=== PATIENT | male | born 1965 | race Caucasian/White ===

== ENCOUNTER 2016-08-17 05:45 | Day surgery (SDC) | payer BC ==
[~2016-08-17] VITALS: Ht 175.3 cm; Wt 78.0 kg
[~2016-08-17 05:45] MED LIST: ATOR20TA15 PO; BEDSIDE COMMODE1 MI1; LEVO.125 PO; LISI40TA PO; PROT40TA PO; WALKER WHEELS/F1 MIS
[2016-08-17] MEDS ORDERED: NS 1000P @30 MLS/HR (KVO) IV SCH (06:15)
[2016-08-17] MEDS ORDERED: SODIUM CHLOR 0.9% 1000 ML INJ 1,000 ML IV SCH ×2 (06:26→09:03)
[2016-08-17] MEDS ORDERED: ASPIRIN 325 MG TAB PO SCH (06:30)
[2016-08-17] MEDS ORDERED: MIDAZOLAM HCL 2 MG/2 ML VIAL IV SCH (06:30)
[2016-08-17] MEDS ORDERED: HEPARIN-NS/PF INJ 500 ML ONE (06:58)
[2016-08-17] MEDS ORDERED: MIDAZOLAM HCL 2 MG/2 ML VIAL ONE (06:59)
[2016-08-17] MEDS ORDERED: NITROGLYCERIN INJ 5 ML ONE (07:04)
[2016-08-17] MEDS ORDERED: NAPR220T95 PO (07:04)
[2016-08-17] MEDS ORDERED: ASPI1TAB69 PO (07:04)
[2016-08-17] MEDS ORDERED: LISI10TA PO (07:04)
[2016-08-17] MEDS ORDERED: HEPARIN SODIUM - IV 10,000 UNITS/10 ML VIAL ONE (07:04)
[2016-08-17] MEDS ORDERED: VERAPAMIL HCL 5 MG/2 ML VIAL ONE (07:04)
[2016-08-17 07:06] VITALS: BP 116/72; PULSE 78; RESP 18; TEMP 99.3; O2SAT 99
[2016-08-17] MEDS ORDERED: IOHEXOL 350 MG/ML 100 ML BTL (for Cath Lab) OTHER ONE (08:00)
[2016-08-17 08:29] LABS: TOTAL PROTEIN SPE 6.3 GM/DL (6.0-7.6)
[2016-08-17 08:49] LABS: TRANSFERRIN IRON PROFILE 148 MG/DL (200-360)
[2016-08-17] MEDS ORDERED: ASPI325T PO (09:03)
[2016-08-17] MEDS ORDERED: ATROPINE SULFATE 1 MG/ML VIAL IV PRN (09:15)
[2016-08-17] MEDS ORDERED: MISC INFORMATION XX ONE (09:15)
[2016-08-17] MEDS ORDERED: BACITRACIN OINT 0.9 GM PKT TOP ONE (09:15)
[2016-08-17] MEDS ORDERED: SODIUM CHLORIDE 0.9% FLUSH 10 ML FLUSH IV FLUSH SCH (21:00)
[2016-08-18 20:58] LABS: ALBUMIN SPE 3.69 GM/DL (3.50-5.00); ALPHA 1 GLOBULIN 0.3 GM/DL (0.11-0.29); ALPHA 2 GLOBULIN 0.69 GM/DL (0.22-1.00); BETA GLOBULINS (SPE) 0.78 GM/DL (0.53-1.03)
--- NOTE | 2016-08-21 10:02 | MA ---
cc: GABBI LIRA M.D., MARK B. M.D. DATE: 08/17/2016 PROCEDURE PERFORMED Right heart catheterization. Left heart catheterization. Coronary arteriography. Left ventriculography. PROCEDURE TECHNIQUE The patient was brought to the cardiac catheterization laboratory and the area of the right wrist and right groin were prepped and draped in the usual sterile manner. Following informed consent the patient underwent a left heart catheterization utilizing the right radial approach. A 6-Botswanan short introducer sheath was placed in the right radial artery without difficulty. Through this sheath a 6-B[place]wanan diagnostic catheter system including a JL4, TIG, JR4, and straight pigtail were used for the left heart study. Multiple projections of the left and right coronaries were taken. Left ventriculogram was done in the BOWLES 30 projection only. A 7-[place]wanan short introducer sheath was placed via modified Seldinger technique in the right femoral vein for access and placement of a Hanover-Benjamin thermodilution catheter. Pressures were then measured in the right atrium, right ventricle, pulmonary artery and pulmonary capillary wedge positions. Triplicate thermodilution cardiac outputs were performed. A final right coronary angiogram was performed before removal of the Hanover catheter for better evaluation of the anomalous circumflex artery. Oxygen saturations were drawn on withdrawal of the Hanover-Benjamin catheter in the pulmonary artery, right ventricle, high mid and low right atrium. At completion of procedure the catheters and introducers were removed and adequate hemostasis was maintained with a TR band in the right radial artery and manual pressure in the right femoral vein. The patient tolerated the procedure well. There were no immediate complications. HEMODYNAMIC DATA Right heart pressures: Right atrium A-wave = 6, V-wave = 5, mean = 3 mmHg. Right ventricle 29/7 mmHg. Pulmonary artery 22/5 with a mean pulmonary artery pressure of 12 mmHg. Pulmonary capillary wedge pressure A-wave = 9, V-wave = 9, mean = 6 mmHg. The cardiac output by thermodilution was 6.0 liters per minute. Cardiac index 3.0 liters per minute per meter squared. Cardiac index by Elva 3.3 liters per minute per meter squared. Oxygen saturations were drawn and there was no evidence of shunting or step up. Left heart pressures: There was no gradient recorded across the aortic valve. Left ventricular end-diastolic pressure was 11 mmHg. For complete hemodynamic details please see accompanying paperwork. LEFT VENTRICULOGRAPHY FINDINGS The left ventricle demonstrates increased end-systolic and diastolic dimensions. Overall left ventricular contractility is mild to moderately impaired. Estimated left ventricular ejection fraction is 40-45%. No mitral regurgitation is seen. The aortic valve is trileaflet and opens normally. The aortic root and proximal portion of the ascending aorta are normal. CORONARY ARTERIOGRAPHY FINDINGS LEFT MAIN: The left main trunk arises normally from the left coronary sinus. The left main trunk is normal. LAD: The left anterior descending artery is a moderate caliber vessel giving rise to multiple septal and diagonal branches. There are mild luminal irregularities but no significant obstructive disease. No circumflex is identified from the left coronary system. RCA: The right coronary gives rise to the circumflex artery which courses posterior to the aorta. The right coronary is large in caliber. There is 30-35% proximal stenosis. There is an area of up to 40% stenosis in the mid to distal segment. It gives rise to a posterior descending branch and right ventricular marginal branch. Mild irregularities. CIRCUMFLEX: The main circumflex is large in caliber. It gives rise to a posterolateral branch. There is a bifurcation and subdivision with a 40% stenosis in the midsegment. DIAGNOSIS 1. Normal right heart pressures. 2. Mild to moderate left ventricular dysfunction. 3. Mild coronary atherosclerosis. 4. 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 COMMENT/RECOMMENDATION Angiographically, this patient demonstrates findings of a nonischemic/dilated cardiomyopathy. He will be treated with medical management. He is currently undergoing evaluation of elevated liver function tests as well. This has caused avoidance of statin therapy for now. He has been recommended to eliminate any alcohol intake. He will be discharged home later today and follow-up has been arranged in 2 weeks. Medardo MD EMIR Hamilton/AKOSUA /8:41 AM /9:46 AM
== END 2016-08-17 11:40 | disposition home or self-care (01) ==
LOC: HDIC 05:45 → HDOC 05:45
PROVIDERS: ATTEND Internal Medicine Interventional Cardiology
DX: I25.10 Atherosclerotic heart disease of native coronary artery without angina pectoris (principal); I42.0 Dilated cardiomyopathy; R94.39 Abnormal result of other cardiovascular function study; I10 Essential (primary) hypertension; E78.00 Pure hypercholesterolemia, unspecified; Z79.01 Long term (current) use of anticoagulants
CPT/HCPCS: 82728; 82810; 83540; 83550; 84165; 93460; C1769; C1893; J1644; J2250; J3010; Q9967

== ENCOUNTER 2016-09-04 23:37 | Inpatient (IN) | payer BC ==
[~2016-09-04] VITALS: Ht 177.8 cm; Wt 87.6 kg
[~2016-09-04 23:37] MED LIST changes: +ASPI325T PO; -ATOR20TA15 PO; -BEDSIDE COMMODE1 MI1; +LISI10TA PO; -LISI40TA PO; +NAPR220T95 PO; -WALKER WHEELS/F1 MIS
[2016-09-04 23:42] VITALS: BP 101/59; PULSE 79; RESP 16; TEMP 98.8; O2SAT 95
[2016-09-04] MEDS ORDERED: ONDANSETRON HCL 4 MG/2 ML VIAL IV ONE (23:45)
[2016-09-04] MEDS ORDERED: SODIUM CHLOR 0.9% 1000 ML INJ 1,000 ML IV ONE (23:45)
[2016-09-04] MEDS ORDERED: METO25TA6 PO (23:56)
[2016-09-04] MEDS ORDERED: ASPI1TAB73 (23:56)
[2016-09-04] MEDS ORDERED: L-THPOW PO (23:56)
--- NOTE | 2016-09-04 23:59 | PD ---
HPI Chief Complaint: Abdominal Pain Time Seen by Provider: 23:43 Travel History International Travel<30 days: No Contact w/Intl Traveler<30days: No Traveled to known affect area: No History of Present Illness HPI The patient is a 50 year old male who presents to the [facility] emergency department with a history of abdominal pain in the midepigastric area associated with nausea, vomiting, and diarrhea that began today at approximately 8:30 PM. The patient reports that the pain is above the umbilicus. The patient reports that he has never had a pain like this previously. The patient reports that he then began to have vomiting and vomited approximately 4 times. He also began to have diarrhea and had 4 episodes of diarrhea. The patient reports that the stool is brown in color. He denies having any blood in his stool or mucus in his stool. He denies any recent antibiotic use, sick contacts, unusual food intake, or foreign travel. The patient's recent history has been complicated by having elevated liver enzymes and an episode of vomiting a few weeks ago. The patient has been undergoing workup for possible hemochromatosis. The patient was also noted to have a left bundle branch block and was referred to Dr. Lambert for further evaluation. The patient underwent a cardiac catheterization on August 17, 2016. The patient's cardiac catheterization revealed mild to moderate left ventricular dysfunction, mild coronary atherosclerosis. Dr. Kelley dictated that the patient had angiographic findings of a nonischemic dilated cardiomyopathy. He recommended medical management. The patient has recently been placed on a beta francis. The patient denies any history of fever, cough, congestion, neck pain, chest pain, shortness of breath, urinary symptoms, or neurologic symptoms. 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 Cancer: No Cardiovascular Problems: Yes (LBBB) High Cholesterol: Yes Diabetes: No Diminished Hearing: No Endocrine: Yes Gastrointestinal Disorders: Yes (reflux esophageal nodules) Genitourinary: No Hepatitis: No Hiatal Hernia: Yes (repair) Hypertension: Yes Immune Disorder: No Medical other: Yes (hemochromatosis) Musculoskeletal: Yes (arthritis of the back and hips) Neurologic: No Psychiatric: No Reproductive: No Respiratory: No Immunizations Current: Yes Thyroid Disease: Yes Influenza Vaccination: No Past Surgical History Narrative Surgical The patient's past surgical history is significant for hiatal hernia repair, hip surgery Abdominal Surgery: No AICD: No Cardiac Surgery: No Ear Surgery: No Endocrine Surgery: No Eye Surgery: No Genitourinary Surgery: No Gynecologic Surgery: No Joint Replacement: No Oral Surgery: No Pacemaker: No Thoracic Surgery: No Other Surgery: Yes (left hip, esophageal) Social History Alcohol Use: Yes (rarely) Tobacco Use: No Substance Use: No Allergies-Medications (Allergen,Severity, Reaction): Coded Allergies: No Known Allergies (Unverified , 09/04/16) Reported Meds & Prescriptions Reported Meds & Active Scripts Active Reported Metoprolol Succinate ER 24 HR (Metoprolol Succinate) 25 Mg Tab 25 Mg PO DAILY L-Thyroxine (Bulk) (Levothyroxine (Bulk)) Bulk Pow 125 Mcg PO DAILY Melissa Aspirin EC Low Dose (Aspirin) 81 Mg Tabdr Lisinopril-Hctz 10-12.5 Mg Tab 1 Tab PO DAILY Aleve (Naproxen Sodium) 220 Mg Tab 440 Mg PO BID PRN Protonix (Pantoprazole Sodium) 40 Mg Tab 40 Mg PO DAILY Review of Systems Except as stated in HPI: all other systems reviewed are Neg General / Constitutional: No: Fever Eyes: No: Visual changes HENT: No: Headaches Cardiovascular: No: Chest Pain or Discomfort Respiratory: No: Shortness of Breath Gastrointestinal: Positive: Nausea, Vomiting, Diarrhea, Abdominal Pain, Changes in Bowel Habits, Indigestion, Loss of Appetite, No: Hematemesis, Hematochezia Genitourinary: No: Dysuria Musculoskeletal: No: Pain Skin: No Rash Neurologic: No: Weakness Psychiatric: No: Depression Endocrine: No: Polydipsia Hematologic/Lymphatic: No: Easy Bruising Physical Exam Narrative General: The patient is a well-developed well-nourished male in no acute distress on arrival by ambulance services. Head and Neck exam: Head is normocephalic atraumatic. Eyes: EOMI, pupils are equal round and reactive to light. Nose: Midline septum with pink mucous membranes Mouth: Dentition unremarkable. Moist mucus membranes. Posterior oropharynx is not erythematous. No tonsillar hypertrophy. Uvula midline. Airway patent. Neck: No palpable lymphadenopathy. No nuchal rigidity. No thyromegaly. Cardiovascular: Regular rate and rhythm without murmurs, gallops, or rubs. Lungs: Clear to auscultation bilaterally. No wheezes, rhonchi, or rales. Abdomen: Soft, with tenderness on palpation of the midepigastric area periumbilical area and suprapubic area, no tenderness on palpation of McBurney's point. or the right upper quadrant of the abdomen. No guarding, rebound, or rigidity. Negative Ashton sign. Normal bowel sounds are audible. Extremities: No clubbing, cyanosis, or edema. 2+ pulses in all 4 extremities. No calf tenderness on palpation. Back: No spinous process tenderness to palpation. No costovertebral angle tenderness to palpation. Neurologic Exam: Grossly nonfocal. Skin Exam: No rash noted. Intact skin that is warm and dry. Data Data Last Documented VS Vital Signs Date Time Temp Pulse Resp B/P Pulse Ox O2 Delivery O2 Flow Rate FiO2 09/04/16 23:42 98.8 79 16 101/59 95 Orders Electrocardiogram (09/04/16 23:44) Complete Blood Count With Diff (09/04/16 23:44) Comprehensive Metabolic Panel (09/04/16 23:44) C-Reactive Protein (Crp) (09/04/16 23:44) Lipase (09/04/16 23:44) Urinalysis - C+S If Indicated (09/04/16 23:44) Magnesium (Mg) (09/04/16 23:44) Enteric Path (Stool) (09/04/16 23:44) C Diff Toxin Pcr (09/04/16 23:44) Iv Access Insert/Monitor (09/04/16 23:44) Ecg Monitoring (09/04/16 23:44) Oximetry (09/04/16 23:44) Stool Wbc (Leukocytes) (09/04/16 23:44) Sodium Chlor 0.9% 1000 Ml Inj (Ns 1000 M (09/04/16 23:45) Ondansetron Inj (Zofran Inj) (09/04/16 23:45) B-Type Natriuretic Peptide (09/05/16 00:08) Ckmb (Isoenzyme) Profile (09/04/16 23:44) Troponin I (09/04/16 23:44) Ct Abd/Pel W Iv Contrast(Rout) (09/05/16 00:44) Chest, Single Ap (09/05/16 00:56) Sodium Chlor 0.9% 1000 Ml Inj (Ns 1000 M (09/05/16 01:45) CKMB (09/05/16 00:15) CKMB% (09/05/16 00:15) Lactic Acid Sepsis Protocol (09/05/16 02:19) Piperacil-Tazo 3.375 Gm Premix (Zosyn 3. (09/05/16 02:30) Vancomycin Inj (Vancomycin Inj) (09/05/16 02:30) Sodium Chlor 0.9% 1000 Ml Inj (Ns 1000 M (09/05/16 02:30) Admit Order (Ed Use Only) (09/05/16 02:28) Labs Laboratory Tests Test 09/05/16 09/05/16 09/05/16 00:15 02:00 02:30 White Blood Count 16.5 TH/MM3 Red Blood Count 4.28 MIL/MM3 Hemoglobin 14.3 GM/DL Hematocrit 41.4 % Mean Corpuscular Volume 96.7 FL Mean Corpuscular Hemoglobin 33.4 PG Mean Corpuscular Hemoglobin 34.5 % Concent Red Cell Distribution Width 14.2 % Platelet Count 466 TH/MM3 Mean Platelet Volume 7.2 FL Neutrophils (%) (Auto) 91.9 % Lymphocytes (%) (Auto) 4.7 % Monocytes (%) (Auto) 1.9 % Eosinophils (%) (Auto) 1.1 % Basophils (%) (Auto) 0.4 % Neutrophils # (Auto) 15.2 TH/MM3 Lymphocytes # (Auto) 0.8 TH/MM3 Monocytes # (Auto) 0.3 TH/MM3 Eosinophils # (Auto) 0.2 TH/MM3 Basophils # (Auto) 0.1 TH/MM3 CBC Comment AUTO DIFF Differential Total Cells 100 Counted Neutrophils % (Manual) 53 % Band Neutrophils % 39 % Lymphocytes % 4 % Monocytes % 2 % Eosinophils % 1 % Basophils % 1 % Neutrophils # (Manual) 15.2 TH/MM3 Differential Comment FINAL DIFF MANUAL Platelet Estimate NORMAL Platelet Morphology Comment NORMAL Sodium Level 137 MEQ/L Potassium Level 4.2 MEQ/L Chloride Level 104 MEQ/L Carbon Dioxide Level 20.5 MEQ/L Anion Gap 13 MEQ/L Blood Urea Nitrogen 6 MG/DL Creatinine 0.90 MG/DL Estimat Glomerular Filtration 89 ML/MIN Rate Random Glucose 92 MG/DL Calcium Level 9.3 MG/DL Magnesium Level 1.9 MG/DL Total Bilirubin 1.0 MG/DL Aspartate Amino Transf 85 U/L (AST/SGOT) Alanine Aminotransferase 56 U/L (ALT/SGPT) Alkaline Phosphatase 131 U/L Total Creatine Kinase 101 U/L Creatine Kinase MB 0.6 NG/ML Troponin I LESS THAN 0.02 NG/ML C-Reactive Protein 0.75 MG/DL B-Type Natriuretic Peptide 60 PG/ML Total Protein 7.8 GM/DL Albumin 3.4 GM/DL Lipase 253 U/L Stool C. difficile Toxin (PCR) NEGATIVE Stl C. difficile Toxin PRESUMPTIVE Epiderm 027 NEGATIVE Lactic Acid Level 3.1 mmol/L MDM Medical Decision Making Medical Screen Exam Complete: Yes Emergency Medical Condition: Yes Medical Record Reviewed: Yes Interpretation(s) Last Impressions Chest X-Ray 09/05/16 0056 Signed Impressions: Service Date/Time: Monday, September 05, 2016 01:19 - CONCLUSION: Normal examination. Casa Bhat MD Abdomen/Pelvis CT 09/05/16 0044 Signed Impressions: Service Date/Time: Monday, September 05, 2016 02:46 - CONCLUSION: Normal examination. Casa Bhat MD Differential Diagnosis Viral versus bacterial gastroenteritis, versus C. difficile colitis, versus sepsis of undetermined origin, versus dissecting abdominal aneurysm, versus profound dehydration, versus electrolyte derangements Narrative Course During the course of the patients emergency department visit, the patients history, examination, and differential diagnosis were reviewed with the patient. The patient had IV access obtained and blood work sent for analysis. The patient was placed on a hebrew teacher with oximetry and blood pressure monitoring. The patient reported that he needed to go to the bathroom and preferred to ambulate there. After the patient came out of the bathroom, the patient reported generalized weakness. The patient was placed in a wheelchair and had a syncopal event. This lasted for a few seconds. The patient was placed back into the bed with assistance. The patient's blood pressure once he was return back to bed was 101 systolic. The patient's EKG shows a sinus rhythm , left bundle branch block, no other acute abnormality. Cardiac enzymes were added onto the patient's evaluation due to his syncope. The patient was initially provided normal saline 1 L IV fluid bolus, Zofran 4 mg IV. The patients laboratory studies were reviewed and remarkable for a white count of 16.5 with a left shift. The patient is noted to have bandemia. The patient was covered with broad-spectrum antibiotic due to a concern for the possibility of sepsis with an abdominal source. The patient was given Zosyn 3.375 g IV, vancomycin 1 g IV. The patient's blood pressure went down into the 90s systolic. The patient was given an additional 2 L normal saline IV fluid bolus for suspected dehydration. CMP was remarkable for a CO2 of 20.5, AST 85, alkaline phosphatase slightly elevated. Lipase within normal limits. Cardiac enzymes were within normal limits. Lactic acid was also sent with blood cultures. Lactic acid initially was 3.1 which could be related to sepsis versus dehydration. This will be repeated in 2 hours to reassess for improvement. The patient was repeatedly reassessed during his hydration for any signs of fluid overload given his history of a mild nonischemic cardiomyopathy with a diminished ejection fraction. The patient continued to be awake and alert. The patient was feeling improved with fluid resuscitation. Radiology studies were reviewed and remarkable for a chest x-ray that showed no acute abnormality. A CT scan with IV contrast was done that showed no acute abnormality. The patients results were discussed with the patient, including the plan of care. I explained that further testing and/ or monitoring is indicated based on the patients history, examination, and/ or laboratory findings. Therefore, I recommended admission for additional evaluation. The patient expressed understanding and was agreeable with this plan. The patient was admitted to the hospital in guarded condition and [facility] Critical Care Narrative Aggregate critical care time was 35 minutes. Time to perform other separately billable procedures was not included in the critical care time. My time did not include minutes spent treating any other patients simultaneously or on activities that did not directly contribute to the patient's treatment. The services I provided to this patient were to treat and/or prevent clinically significant deterioration that could result in: Cardiovascular collapse, respiratory failure from pulmonary edema I provided critical care services requiring my management, as noted below: Chart data review, documentation time, medication orders and management, vital sign assessments/reviewing monitor data, ordering and reviewing lab tests, ordering and interpreting/reviewing x-rays and diagnostic studies, care of the patient and discussion of the patient with the admitting physicians. Sepsis Criteria SIRS Criteria (2 or more): WBC > 45808, < 4000 or > 10% bands Sepsis Criteria (SIRS+source): Infect source susp/known Severe Sepsis (+one): Hypotension, Lactate >2 Physician Communication Physician Communication The patient's case was discussed with Dr. Mcconnell who did agree to admit the patient for further evaluation and treatment at this time. Diagnosis Primary Impression: Nausea, vomiting, and diarrhea Additional Impressions: Syncope and collapse Dehydration Admitting Information Admitting Physician Requests: Admit Faina Emerson MD Sep 04, 2016 23:59
[2016-09-05] VITALS (8 sets, daily range): BP systolic 75–130; BP diastolic 37–71; PULSE 66–91; RESP 16; TEMP 98.7–99.5; O2SAT 96–100
[2016-09-05 00:43] LABS: AUTOMATED NEUTROPHIL # 15.2 TH/MM3 (1.8-7.7); BASOPHIL # 0.1 TH/MM3 (0-0.2); BASOPHIL % 0.4 % (0.0-2.0); EOSINOPHIL # 0.2 TH/MM3 (0-0.4); EOSINOPHIL % 1.1 % (0.0-4.0); HEMATOCRIT 41.4 % (39.0-51.0); LYMPH % 4.7 % (9.0-44.0); LYMPHOCYTE # 0.8 TH/MM3 (1.0-4.8); MEAN CELL VOLUME 96.7 FL (80.0-100.0); MEAN CORPUSCULAR HEMOGLOBIN 33.4 PG (27.0-34.0); MEAN CORPUSCULAR HGB CONC 34.5 % (32.0-36.0); MONO % 1.9 % (0.0-8.0); NEUT % 91.9 % (16.0-70.0); PLATELET COUNT 466 TH/MM3 (150-450); RED BLOOD COUNT 4.28 MIL/MM3 (4.50-5.90); RED CELL DISTRIBUTION WIDTH 14.2 % (11.6-17.2); WHITE BLOOD COUNT 16.5 TH/MM3 (4.0-11.0)
[2016-09-05 00:55] LABS: HEMO FLAGS AUTO DIFF
[2016-09-05 01:34] LABS: BANDS 39 % (0-6); BASOPHILS 1 % (0-2); EOSINOPHILS 1 % (0-4); NEUTROPHIL # MANUAL DIFF 15.2 TH/MM3 (1.8-7.7); POLYS (SEG NEUTROPHILS) 53 % (16-70); WBC DIFF SAMPLE 100
[2016-09-05 01:35] LABS: PLATELET ESTIMATE SMEAR NORMAL (NORMAL); PLATELET MORPHOLOGY NORMAL (NORMAL); SCAN/DIFF FINAL DIFF MANUAL
[2016-09-05] MEDS ORDERED: SODIUM CHLOR 0.9% 1000 ML INJ 1,000 ML IV ONE ×2 (01:45→02:30)
--- NOTE | 2016-09-05 01:46 | RADRPT ---
EXAM DATE/TIME: 09/05/2016 01:19 [facility] COMPARISON: No previous studies available for comparison. INDICATIONS : Short of breath after syncopal episode. MEDICAL HISTORY : None. SURGICAL HISTORY : None. ENCOUNTER: Initial ACUITY: 1 day PAIN SCORE: 0/10 LOCATION: Bilateral chest FINDINGS: A single view of the chest demonstrates the lungs to be symmetrically aerated without evidence of mas s, infiltrate or effusion. The cardiomediastinal contours are unremarkable. Osseous structures are intact. CONCLUSION: Normal examination. Casa Bhat MD on September 05, 2016 at 1:44 Board Certified Radiologist. This report was verified electronically.
[2016-09-05 01:47] LABS: ALKALINE PHOSPHATASE 131 U/L (45-117); ALT (GPT) 56 U/L (12-78); AST (GOT) 85 U/L (15-37); BLOOD UREA NITROGEN 6 MG/DL (7-18); GLOMERULAR FILTRATION RATE 89 ML/MIN (>89); MAGNESIUM 1.9 MG/DL (1.5-2.5)
[2016-09-05 01:48] LABS: ANION GAP 13 MEQ/L (5-15); BICARBONATE 20.5 MEQ/L (21.0-32.0); CHLORIDE 104 MEQ/L (98-107); CREATINE KINASE 101 U/L (39-308); POTASSIUM 4.2 MEQ/L (3.5-5.1); SODIUM (NA) 137 MEQ/L (136-145)
[2016-09-05 02:06] LABS: CKMB 0.6 NG/ML (0.5-3.6)
[2016-09-05] MEDS ORDERED: PIPERACIL-TAZO 3.375 GM PREMIX 50 ML IV ONE (02:30)
[2016-09-05] MEDS ORDERED: VANCOMYCIN INJ 1,000 MG in SODIUM CHLOR 0.9% 250 ML INJ 250 ML IV ONE (02:30)
[2016-09-05] MEDS ORDERED: IOHEXOL 350 MG/ML 10 ML VIAL (for RAD DIAG) IV ONE (02:49)
--- NOTE | 2016-09-05 03:08 | RADRPT ---
EXAM DATE/TIME: 09/05/2016 02:46 [facility] COMPARISON: No previous studies available for comparison. INDICATIONS : Epigastric pain with nausea and vomiting. IV CONTRAST: 95 cc Omnipaque 350 (iohexol) IV ORAL CONTRAST: No oral contrast ingested. RADIATION DOSE: 8.75 CTDIvol (mGy) MEDICAL HISTORY : Hypertension. Hernia, hiatal. Cardiovascular disease SURGICAL HISTORY : None. ENCOUNTER: Initial ACUITY: 1 day PAIN SCALE: 3/10 LOCATION: epigastric TECHNIQUE: Volumetric scanning of the abdomen and pelvis was performed. Using automated exposure control and ad justment of the mA and/or kV according to patient size, radiation dose was kept as low as reasonably achievable to obtain optimal diagnostic quality images. FINDINGS: LOWER LUNGS: The visualized lower lungs are clear. LIVER: Homogeneous density without lesion. There is no dilation of the biliary tree. No calcified gallston es. SPLEEN: Normal size without lesion. PANCREAS: Within normal limits. KIDNEYS: Normal in size and shape. There is no mass, stone or hydronephrosis. ADRENAL GLANDS: Within normal limits. VASCULAR: There is no aortic aneurysm. BOWEL/MESENTERY: The stomach, small bowel, and colon demonstrate no acute abnormality. There is no free intraperitone al air or fluid. ABDOMINAL WALL: Within normal limits. RETROPERITONEUM: There is no lymphadenopathy. BLADDER: No wall thickening or mass. REPRODUCTIVE: Within normal limits. INGUINAL: There is no lymphadenopathy or hernia. MUSCULOSKELETAL: Within normal limits for patient age. Left hip arthroplasty CONCLUSION: Normal examination. Casa Bhat MD on September 05, 2016 at 3:06 Board Certified Radiologist. This report was verified electronically.
[2016-09-05] MEDS ORDERED: SODIUM CHLORIDE 0.9% FLUSH 10 ML FLUSH IV FLUSH PRN (03:45)
[2016-09-05] MEDS ORDERED: NALOXONE HCL 0.4 MG/ML AMP IV PRN (03:45)
[2016-09-05 04:26] LABS: BLOOD, URINE NEG (NEG); COMMENT (UR) CULT NOT INDICATED; CULTURE IF INDICATED CULT NOT INDICATED; GLUCOSE,URINE NEG (NEG); HYALINE CAST, URINE 1 /lpf (RARE); KETONE, URINE NEG (NEG); MUCUS URINE FEW /lpf (OCC); NITRITE,URINE NEG (NEG); PH, URINE 7.5 (5.0-8.5); SQUAMOUS EPITHELIAL CELL URINE <1 /hpf (0-5); URINE COLOR YELLOW (YELLW/STRAW)
[2016-09-05 04:35] LABS: LACTIC ACID GHOST NOT REPORTABLE
[2016-09-05 05:31] LABS: C. DIFF EPI 027 PRESUMPTIVE NEGATIVE (NEGATIVE); C. DIFF TOXIN PCR NEGATIVE (NEGATIVE)
--- NOTE | 2016-09-05 05:55 | HHI.HP ---
[facility] Service [facility] Primary Care Physician Maximiliano Darby MD Admission Diagnosis Abdominal pain, n/v/d, syncope Diagnoses: Travel History International Travel<30 Days: No Contact w/Intl Traveler <30 Da: No Traveled to Known Affected Are: No History of Present Illness History from patient, his at the bedside, ER physician communication, and review of medical records. Patient reported that all of a sudden yesterday around 9 PM, he started having profuse diarrhea. He states that this was associated with severe abdominal pain which she pointed to epigastric and mid lower abdomen. He stated he was also extremely dizzy because of these episodes and felt as slowly he was about to passed out. He reports he just was not feeling well and he decided to call an ambulance. He reports he is somebody who never uses ambulance services previously. He states it is quite a bit for him to call the ambulance. In the emergency room, patient also had episodes of diarrhea in the bathroom. At that point, he did have witnessed episode of syncope. He was actually accompanied back to his bed but nursing staff and his . He did not hit his head. Patient denies any blood in his stool. Denies any hematuria. Denies any chest pains or shortness of breath associated with this. In the emergency room, patient's workup also revealed hypotension with blood pressure around 80s over 50s. He is not tachycardic. He is however on beta blockers at home. He reports that this beta francis regimen was started sometime in late June when he started saying the telephone surveyor. His angiogram was done on August 17, 2016. This did reveal nonischemic cardiomyopathy with EF of 45-50%. Denies any sick contact. On review of medical records, patient was recently admitted being worked up for hemochromatosis as he does have elevated ferritin levels. He states that he has not seen Dr. Espinoza. Review of Systems Except as stated in HPI: all other systems reviewed are Neg Past Family Social History Past Medical History htn hemochromatosis non ischemic cardiomyopathy - ef 40-45% by angiogram 08/17/16 fatty liver osteoarthritis hypothyroidism Past Surgical History hip sx right knee arthroscopy laminectomy esophageal shchaski rings hiatal hernia repair Reported Medications Patient's medications list on EMRreviewed Allergies: Coded Allergies: No Known Allergies (Unverified , 09/04/16) Family History mothers side with [place] in their 50s thyroid problems Social History denies smoking, has not smoked for about 30yrs now denies etoh abuse or drug abuse - used to drink about 2-5 beers a day previously Physical Exam Vital Signs Vital Signs Date Time Temp Pulse Resp B/P Pulse Ox O2 Delivery O2 Flow Rate FiO2 09/05/16 04:15 87 16 81/47 98 Room Air 09/05/16 04:00 87 16 76/41 100 Room Air 09/05/16 03:45 91 16 97/52 98 Room Air 09/04/16 23:42 98.8 79 16 101/59 95 Physical Exam GENERAL: This is a well-nourished, well-developed patient, in no apparent distress. SKIN: No rashes, ecchymoses or lesions. Cool and dry. HEAD: Atraumatic. Normocephalic. No temporal or scalp tenderness. EYES: No scleral icterus. No injection or drainage. ENT: Nose without bleeding, purulent drainage or septal hematoma. Airway patent. NECK: Trachea midline. No JVD Supple, nontender, no meningeal signs. CARDIOVASCULAR: Regular rate and rhythm without murmurs, gallops, or rubs. RESPIRATORY: Clear to auscultation. Breath sounds equal bilaterally. No wheezes , rales, or rhonchi. GASTROINTESTINAL: Abdomen soft, non-tender, nondistended.. No guarding. MUSCULOSKELETAL: Extremities without clubbing, cyanosis, or edema.. No calf tenderness. NEUROLOGICAL: Awake and alert. Motor and sensory grossly within normal limits. Normal speech. Laboratory Laboratory Tests Test 09/05/16 09/05/16 09/05/16 09/05/16 00:15 02:00 02:30 04:00 White Blood Count 16.5 Red Blood Count 4.28 Hemoglobin 14.3 Hematocrit 41.4 Mean Corpuscular Volume 96.7 Mean Corpuscular Hemoglobin 33.4 Mean Corpuscular Hemoglobin 34.5 Concent Red Cell Distribution Width 14.2 Platelet Count 466 Mean Platelet Volume 7.2 Neutrophils (%) (Auto) 91.9 Lymphocytes (%) (Auto) 4.7 Monocytes (%) (Auto) 1.9 Eosinophils (%) (Auto) 1.1 Basophils (%) (Auto) 0.4 Neutrophils # (Auto) 15.2 Lymphocytes # (Auto) 0.8 Monocytes # (Auto) 0.3 Eosinophils # (Auto) 0.2 Basophils # (Auto) 0.1 CBC Comment AUTO DIFF Differential Total Cells 100 Counted Neutrophils % (Manual) 53 Band Neutrophils % 39 Lymphocytes % 4 Monocytes % 2 Eosinophils % 1 Basophils % 1 Neutrophils # (Manual) 15.2 Differential Comment FINAL DIFF MANUAL Platelet Estimate NORMAL Platelet Morphology Comment NORMAL Sodium Level 137 Potassium Level 4.2 Chloride Level 104 Carbon Dioxide Level 20.5 Anion Gap 13 Blood Urea Nitrogen 6 Creatinine 0.90 Estimat Glomerular Filtration 89 Rate Random Glucose 92 Calcium Level 9.3 Magnesium Level 1.9 Total Bilirubin 1.0 Aspartate Amino Transf 85 (AST/SGOT) Alanine Aminotransferase 56 (ALT/SGPT) Alkaline Phosphatase 131 Total Creatine Kinase 101 Creatine Kinase MB 0.6 Troponin I LESS THAN 0.02 C-Reactive Protein 0.75 B-Type Natriuretic Peptide 60 Total Protein 7.8 Albumin 3.4 Lipase 253 Stool C. difficile Toxin (PCR) NEGATIVE Stl C. difficile Toxin PRESUMPTIVE Epiderm 027 NEGATIVE Lactic Acid Level 3.1 Urine Color YELLOW Urine Turbidity CLEAR Urine pH 7.5 Urine Specific [place] GREATER THAN 1.050 Urine Protein TRACE Urine Glucose (UA) NEG Urine Ketones NEG Urine Occult Blood NEG Urine Nitrite NEG Urine Bilirubin NEG Urine Urobilinogen LESS THAN 2.0 Urine Leukocyte Esterase NEG Urine RBC 1 Urine WBC 1 Urine Squamous Epithelial <1 Cells Urine Hyaline Casts 1 Urine Mucus FEW Microscopic Urinalysis Comment CULT NOT INDICATED Test 09/05/16 04:40 Lactic Acid Level 2.4 Date/Time Procedure Status Source Growth 09/05/16 02:00 Stool Pus (KEREN) Received Stool Stool Pending 09/05/16 02:00 Received Stool Stool Pending Result Diagram: 09/05/16 0015 09/05/16 0015 Imaging Last 48 hours Impressions Chest X-Ray 09/05/16 0056 Signed Impressions: Service Date/Time: Monday, September 05, 2016 01:19 - CONCLUSION: Normal examination. Casa Bhat MD Abdomen/Pelvis CT 09/05/16 0044 Signed Impressions: Service Date/Time: Monday, September 05, 2016 02:46 - CONCLUSION: Normal examination. Casa Bhat MD Assessment and Plan Problem List: (1) Nausea, vomiting, and diarrhea ICD Code: R11.2 Status: Acute Assessment and Plan Impression: vasovagal syncope diarrhea gastroenteritis hypotension- secondary to GI loss, and BP meds leukocytosis with left shift and bandemia dehydration- sepsis by criteria. However this is all likely due to dehydration. Patient looks well clinically. htn hemochromatosis non ischemic cardiomyopathy - ef 40-45% by angiogram 08/17/16 fatty liver osteoarthritis hypothyroidism Plan: stool studies iv fluids watch for overload symptomatic control hematology consult with dr Espinoza for hemochromatosis Resume home meds apart from antihypertensives DVT prophylaxiswith Lovenox Discussed Condition With Patient, , ER physician Physician Certification 2 Midnight Certification Type: Admission for Inpatient Services Order for Inpatient Services The services are ordered in accordance with Medicare regulations or non- Medicare payer requirements, as applicable. In the case of services not specified as inpatient-only, they are appropriately provided as inpatient services in accordance with the 2-midnight benchmark. Estimated LOS (days): 2 days is the estimated time the patient will need to remain in the hospital, assuming treatment plan goals are met and no additional complications. Post-Hospital Plan: Home Sisi Mcconnell MD Sep 05, 2016 05:55
[2016-09-05] MEDS: SODIUM CHLOR 0.9% 1000 ML INJ 1,000 ML IV SCH ×2 (06:46→17:27)
[2016-09-05 07:16] LABS: CREATINE KINASE 42 U/L (39-308)
--- NOTE | 2016-09-05 07:38 | EKG ---
Date Performed: 09/05/2016 Time Performed: 06:21:14 PTAGE: 50 years EKG: Sinus rhythm LEFT BUNDLE BRANCH BLOCK ABNORMAL ECG PREVIOUS TRACING : 09/05/2016 00.13 DOCTOR: Nima Winslow Interpretating Date/Time 09/05/2016 07:38:24
--- NOTE | 2016-09-05 07:42 | EKG ---
Date Performed: 09/05/2016 Time Performed: 00:13:18 PTAGE: 50 years EKG: Sinus rhythm LEFT BUNDLE BRANCH BLOCK ABNORMAL ECG NO PREVIOUS TRACING DOCTOR: Nima Winslow Interpretating Date/Time 09/05/2016 07:41:29
[2016-09-05] MEDS: LEVOTHYROXINE SODIUM 125 MCG TAB PO SCH (08:06)
[2016-09-05] MEDS: SODIUM CHLORIDE 0.9% FLUSH 10 ML FLUSH IV FLUSH SCH ×2 (08:34→22:24)
[2016-09-05] MEDS: PANTOPRAZOLE SOD 40 MG DELAYED RELEASE TAB PO SCH (10:41)
[2016-09-05] MEDS: ENOXAPARIN SODIUM 40 MG/0.4 ML SYRINGE SQ SCH (10:41)
[2016-09-05 14:18] LABS: CREATINE KINASE 47 U/L (39-308)
[2016-09-05] MEDS ORDERED: oxyCODONE/ACETAMINOPHEN 5 MG/325 MG TAB PO PRN (18:30)
[2016-09-05] MEDS ORDERED: oxyCODONE/ACETAMINOPHEN 5 MG/325 MG TAB PO ONE (18:30)
--- NOTE | 2016-09-05 23:13 | MB ---
cc: ANA LUISA FRAGOSO DATE OF CONSULTATION: 09/05/2016 REASON FOR CONSULTATION: I am asked to see the patient because of abdominal pain, nausea, vomiting and possible hemochromatosis. PATIENT PROFILE: The patient is a 50-year-old white male. He is . He does not smoke cigarettes. He has an occasional cigar during an athletic event. He indicates that he stopped consuming alcohol in July of 2016, when he began to have medical problems. Prior to this, he acknowledges drinking four beers a day and when questioned closely during the weekends, when he was with his male friends, he would have up to two six-packs a day. The patient was born in [place], [place]. He has lived in [place] for 30 years. 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 He enjoys golf, walking on the beach. HISTORY OF PRESENT ILLNESS The patient is a 50-year-old male who states that his health began to deteriorate at about the age of 48. He noted increasing fatigue and loss of stamina. At one point he was found to have "lumps in the throat." He saw a physician at [facility] whose name he states is Dr. Zuleta and underwent evaluation on several occasions and no malignant process was identified. The patient has required upper endoscopy and dilation. The patient was referred to me by Dr. Ibarra because of an elevated ferritin. He was found to have a mild cardiomyopathy with left ventricular dysfunction. On 08/07/2016, iron was 188, TIBC 207, saturation 90% and a serum ferritin was 3722 raising the possibility of hemochromatosis. There was also weight loss of about 40 pounds during six months, although recently he has gained weight. He had blood work on 08/10/2016, bilirubin 3.1, alk phos 363, AST 461, ALT 162. An ultrasound of the liver on 08/14/2016 showed the liver to be markedly enlarged. There was increased echogenicity to the liver parenchyma consistent with hepatocellular disease or fatty infiltration. The question of hemachromatosis was raised and I was asked to evaluate him. The patient had genetic testing for a mutation in the HFE gene on 08/24/2016. No mutation was identified and specifically there was nothing to suggest familial hemachromotosis. On August 24, 2016, an MRI of the abdomen was done with and without contrast. I have asked Dr. Juan Mccrary to look at this to determine if there was any evidence of increased iron storage or malignancy involving the liver. The patient was found to have mild hepatomegaly with mild steatosis. No liver lesions were identified. There were no findings to indicate iron deposition within the liver. The patient had hepatitis testing for A, B and C, and these were negative. The patient was referred to a high pressure boiler operator at the [facility] [place] [facility] in [place], [place], Dr. Alcazar, with whom I spoke to several hours ago concerning Mr. Ang. His current admission was precipitated by nausea, vomiting, diarrhea and syncope, after eating pork which was several days old. He is now feeling better. LABORATORY TESTS: On 09/05, hemoglobin 14, white count 16,000, platelet count 466,000. The differential is 53 neutrophils, bands are 39%. Lytes, BUN and creatinine are unremarkable. Total bilirubin is now 1.0. AST 85, ALT 56, alk phos 131. PAST SURGICAL HISTORY: 1. Ablation of Schatzki's ring by Dr. Luna with upper endoscopy, most recently occurring in July 2016. 2. Colonoscopy in 2015. 3. Surgery lumbosacral spine [address] Abdiaziz Stanley for bulging disc with pain down buttocks, left leg. 4. Total left hip replacement, May 2016, by Dr. Abdiaziz Stanley. PAST MEDICAL HISTORY: 1. Elevated cholesterol. 2. Hypertension. 3. Hypothyroidism. 4. Obesity. 5. Osteoarthritis 6. Steatohepatitis. 7. Increased ingestion of alcohol. MEDICATIONS: Prior to admission 1. Aspirin. 2. Levothyroxine 3. Lisinopril/hydrochlorothiazide 4. Metoprolol. 5. Naproxen p.r.n. 6. Protonix ALLERGIES: No known allergies. FAMILY HISTORY: Mother age 74 of pulmonary hypertension. Father age 70 of heart failure. He has a brother who is living and a sister who is living. REVIEW OF SYSTEMS: He is tired. Stamina is poor. There has been weight loss about 40 pounds over six months but recently his weight has increased. Appetite is occasionally diminished, occasional nausea. No headache. He has reading glasses. Occasionally taste and smell are different. Mild bruising. No breast masses. He has mild exertional shortness of breath, no chest pain. He had recent nausea, vomiting, diarrhea, resulting in syncope. No hematuria, dysuria, frequency. He has some mild arthritic pains. No skin problems. Neurologic: No focal weakness. Psychiatric: He is anxious. PHYSICAL EXAMINATION: Reveals a gentleman who appears well. VITAL SIGNS: Blood pressure is 100/60, pulse is 80, respiratory rate 18, afebrile. O2 sat 97%. HEAD: Normocephalic. Sclera and conjunctivae are normal. OROPHARYNX: Unremarkable. There is no cervical supraclavicular, axillary or inguinal adenopathy. HEART: Regular rhythm. LUNGS: Clear. No rales, rhonchi or wheezing. ABDOMEN: Liver, possibly a centimeter below the right costal margin. Previously 4 cm below the right costal margin. EXTREMITIES: Trace edema. MUSCULOSKELETAL: No bone pain. NEUROLOGIC: No weakness. PSYCHIATRIC: Notable only for a mild degree of anxiety. ASSESSMENT: 1. Mr. Ang is a gentleman who is referred to me after he was found to have a cardiomyopathy and a markedly elevated ferritin. He does not have hemachromatosis. The genetic testing shows no mutation. His MRI of the liver does not show increased iron stores. In addition, a liver biopsy was performed on 02/04/2015 and showed "mild increased iron stores." He had early steatohepatitis with no significant fibrosis. I believe that the most likely explanation for the increased ferritin is inflammation of the liver from steatohepatitis and further exacerbated by chronic alcohol abuse. I expect that the ferritin will fall with time, the bilirubin has already fallen. I have spoken with his high pressure boiler operator at the [facility] [place] [facility], Dr. Alcazar, and he will return to see Dr. Alcazar for further evaluation. I have asked Mr. Ang to make an appointment in about 6-8 weeks time. I have ordered a repeat ferritin. It will be interesting to see if it has decreased since his cessation of alcohol. 2. Immediate hospitalization, appears to be due to food poisoning. He had pork and then four to five hours later had nausea, vomiting, diarrhea and syncope. This appears to be resolving. 3. I contacted his aluminum molding machine operator, Dr. Ibarra and reviewed with him the information that I have indicating that he does not have hemachromatosis. It may well be that the alcohol explained the elevated ferritin, steatohepatitis and cardiomyopathy. Thank you for the consultation. MD ELA López/MARILYNN /8:27 PM /10:45 PM MTDYarely
[2016-09-06 01:27] VITALS: BP 109/57; PULSE 66; RESP 16; TEMP 97.3; O2SAT 98
[2016-09-06] MEDS: LEVOTHYROXINE SODIUM 125 MCG TAB PO SCH (05:01)
[2016-09-06] MEDS: SODIUM CHLOR 0.9% 1000 ML INJ 1,000 ML IV SCH (05:02)
[2016-09-06 05:35] VITALS: BP 115/54; PULSE 71; RESP 16; TEMP 97.8; O2SAT 96
[2016-09-06 07:19] LABS: AUTOMATED NEUTROPHIL # 4.5 TH/MM3 (1.8-7.7); BASOPHIL % 0.7 % (0.0-2.0); EOSINOPHIL # 0.3 TH/MM3 (0-0.4); EOSINOPHIL % 4.4 % (0.0-4.0); HEMATOCRIT 32.9 % (39.0-51.0); LYMPH % 19.4 % (9.0-44.0); LYMPHOCYTE # 1.3 TH/MM3 (1.0-4.8); MEAN CELL VOLUME 97.2 FL (80.0-100.0); MEAN CORPUSCULAR HEMOGLOBIN 32.4 PG (27.0-34.0); MEAN CORPUSCULAR HGB CONC 33.4 % (32.0-36.0); MONO % 6.3 % (0.0-8.0); NEUT % 69.2 % (16.0-70.0); PLATELET COUNT 282 TH/MM3 (150-450); RED BLOOD COUNT 3.39 MIL/MM3 (4.50-5.90); RED CELL DISTRIBUTION WIDTH 14.1 % (11.6-17.2); WHITE BLOOD COUNT 6.6 TH/MM3 (4.0-11.0)
[2016-09-06 07:41] LABS: HEMO FLAGS AUTO DIFF
[2016-09-06 07:48] LABS: BICARBONATE 24.5 MEQ/L (21.0-32.0); MAGNESIUM 1.9 MG/DL (1.5-2.5)
[2016-09-06 07:50] VITALS: BP 131/77; PULSE 64; RESP 20; TEMP 96.9; O2SAT 95
[2016-09-06 08:36] LABS: PLATELET ESTIMATE SMEAR NORMAL (NORMAL); PLATELET MORPHOLOGY NORMAL (NORMAL); SCAN/DIFF AUTO DIFF CONFIRMED
[2016-09-06] MEDS: PANTOPRAZOLE SOD 40 MG DELAYED RELEASE TAB PO SCH (09:28)
[2016-09-06] MEDS: ENOXAPARIN SODIUM 40 MG/0.4 ML SYRINGE SQ SCH (09:30)
[2016-09-06] MEDS: SODIUM CHLORIDE 0.9% FLUSH 10 ML FLUSH IV FLUSH SCH (09:30)
[2016-09-06] MEDS ORDERED: IBUPROFEN 400 MG TAB PO PRN (10:45)
[2016-09-06 11:50] VITALS: BP 141/82; PULSE 67; RESP 20; TEMP 97.5; O2SAT 99
[2016-09-06] MEDS ORDERED: MULT1TAB85 PO (13:50)
[2016-09-06] MEDS ORDERED: FOLI1TAB4 PO (13:50)
[2016-09-06] MEDS ORDERED: THIA100T PO (13:50)
--- NOTE | 2016-09-06 13:59 | HHI.PR ---
Subjective Remarks Patient was seen earlier today. He had breakfast without any problems or nausea or vomiting, did have one time diarrhea in the morning no blood in it. Denies fever or chills. Is able to keep fluids and food down. Blood pressure is controlled and is now into a higher side. Was ambulating without any problems. No more dizziness. Feels comfortable to go home. Justo has an appointment with the GI doctor as outpatient and hepatology. Seen by Dr. Espinoza oncology doesn't think he has hemochromatosis. Blood discharge today discussed with the patient and family at bedside discharge plan. Advise patient to one check his blood pressure and low blood pressure and or diarrhea reoccur hold antihypertensive medications Objective Vitals Vital Signs Date Time Temp Pulse Resp B/P Pulse Ox O2 Delivery O2 Flow Rate FiO2 09/06/16 11:50 97.5 67 20 141/82 99 09/06/16 07:50 96.9 64 20 131/77 95 09/06/16 05:35 97.8 71 16 115/54 96 09/06/16 01:27 97.3 66 16 109/57 98 09/05/16 21:45 98.7 66 16 130/71 99 09/05/16 21:19 67 09/05/16 19:30 18 09/05/16 15:15 97 I/O 09/05/16 09/05/16 09/05/16 09/06/16 09/06/16 09/06/16 07:00 15:00 23:00 07:00 15:00 23:00 Intake Total 1050 ml 400 ml Output Total 550 ml Balance 1050 ml -150 ml Intake Oral 250 ml 150 ml IV Total 800 ml 250 ml Output Urine Total 550 ml # Voids 1 # Bowel Movements 0 0 Result Diagram: 09/06/16 0546 09/06/16 0546 Imaging Last Impressions Chest X-Ray 09/05/16 0056 Signed Impressions: Service Date/Time: Monday, September 05, 2016 01:19 - CONCLUSION: Normal examination. Casa Bhat MD Abdomen/Pelvis CT 09/05/16 0044 Signed Impressions: Service Date/Time: Monday, September 05, 2016 02:46 - CONCLUSION: Normal examination. Casa Bhat MD Objective Remarks GENERAL: This is a well-nourished, well-developed patient, in no apparent distress. SKIN: No rashes, ecchymoses or lesions. Cool and dry. HEAD: Atraumatic. Normocephalic. No temporal or scalp tenderness. EYES: No scleral icterus. No injection or drainage. ENT: Nose without bleeding, purulent drainage or septal hematoma. Airway patent. NECK: Trachea midline. No JVD Supple, nontender, no meningeal signs. CARDIOVASCULAR: Regular rate and rhythm without murmurs, gallops, or rubs. RESPIRATORY: Clear to auscultation. Breath sounds equal bilaterally. No wheezes , rales, or rhonchi. GASTROINTESTINAL: Abdomen soft, non-tender, nondistended.. No guarding. MUSCULOSKELETAL: Extremities without clubbing, cyanosis, or edema.. No calf tenderness. NEUROLOGICAL: Awake and alert. Motor and sensory grossly within normal limits. Normal speech. A/P Problem List: (1) Nausea, vomiting, and diarrhea ICD Code: R11.2 Status: Acute Assessment and Plan vasovagal syncope diarrhea gastroenteritis hypotension- secondary to GI loss, and BP meds leukocytosis with left shift and bandemia dehydration- sepsis by criteria. However this is all likely due to dehydration. Patient looks well clinically. HTN Hemochromatosis, questionable, less likely per Dr Taylor hem/onc , findings are 2/2 alcoholic liver disease, liver steatosis Non ischemic cardiomyopathy - EF 40-45% by angiogram 08/17/16 Fatty liver Osteoarthritis Hypothyroidism Plan: stool studies negative iv fluids, now tolerates PO symptomatic control hematology consult with dr Espinoza for hemochromatosis. Seen by Dr Espinoza hem/onc, doesn't think patient has hemochromatosis, findings related to EtOH use/fatty liver Resume home meds apart from antihypertensives. To follow up as OP with PCP and adjust BP meds. BP is into a higher side now. patient was adviced to check his BP at home and hold BP meds if low BP or if he continues to have diarrhea. To follow up as OP in 2-3 days with his PCp and consultants. Patient also complained of headache, advices low dose tylenol or NSAIDS. DVT prophylaxiswith Lovenox Discussed Condition With Patient, his at bedside, nurse Discharge Planning DC home in stable condition To follow up as OP with PCP and consultants, has already an appointment with GI and hepatology Quit drinking EtOH Meds per med reconciliations. adviced patient to stop taking BP meds if still with diarrhea Diet: healthy heart diet Edith Mukherjee MD Sep 06, 2016 13:59 Neutrophils # (Manual) 15.2 Differential Comment FINAL DIFF MANUAL Platelet Estimate NORMAL Platelet Morphology Comment NORMAL Sodium Level 137 Potassium Level 4.2 Chloride Level 104 Carbon Dioxide Level 20.5 Anion Gap 13 Blood Urea Nitrogen 6 Creatinine 0.90 Estimat Glomerular Filtration 89 Rate Random Glucose 92 Calcium Level 9.3 Magnesium Level 1.9 Total Bilirubin 1.0 Aspartate Amino Transf 85 (AST/SGOT) Alanine Aminotransferase 56 (ALT/SGPT) Alkaline Phosphatase 131 Total Creatine Kinase 101 Creatine Kinase MB 0.6 Troponin I LESS THAN 0.02 C-Reactive Protein 0.75 B-Type Natriuretic Peptide 60 Total Protein 7.8 Albumin 3.4 Lipase 253 Stool C. difficile Toxin (PCR) NEGATIVE Stl C. difficile Toxin PRESUMPTIVE Epiderm 027 NEGATIVE Lactic Acid Level 3.1 Urine Color YELLOW Urine Turbidity CLEAR Urine pH 7.5 Urine Specific [place] GREATER THAN 1.050 Urine Protein TRACE Urine Glucose (UA) NEG Urine Ketones NEG Urine Occult Blood NEG Urine Nitrite NEG Urine Bilirubin NEG Urine Urobilinogen LESS THAN 2.0 Urine Leukocyte Esterase NEG Urine RBC 1 Urine WBC 1 Urine Squamous Epithelial <1 Cells Urine Hyaline Casts 1 Urine Mucus FEW Microscopic Urinalysis Comment CULT NOT INDICATED Test 09/05/16 04:40 Lactic Acid Level 2.4 Date/Time Procedure Status Source Growth 09/05/16 02:00 Stool Pus (KEREN) Received Stool Stool Pending 09/05/16 02:00 Received Stool Stool Pending Result Diagram: 09/05/16 0015 09/05/16 0015 Imaging Last 48 hours Impressions Chest X-Ray 09/05/16 0056 Signed Impressions: Service Date/Time: Monday, September 05, 2016 01:19 - CONCLUSION: Normal examination. Casa Bhat MD Abdomen/Pelvis CT 09/05/16 0044 Signed Impressions: Service Date/Time: Monday, September 05, 2016 02:46 - CONCLUSION: Normal examination. Casa Bhat MD Septic Shock Reassessment Septic Shock Reassessment Assessment and Plan Assessment and Plan Problem List: (1) Nausea, vomiting, and diarrhea ICD Code: R11.2 Status: Acute Assessment and Plan Impression: vasovagal syncope diarrhea gastroenteritis hypotension- secondary to GI loss, and BP meds leukocytosis with left shift and bandemia dehydration- sepsis by criteria. However this is all likely due to dehydration. Patient looks well clinically. HTN Hemochromatosis, questionable, less likely per Dr Taylor hem/onc , findings are 2/2 alcoholic liver disease, liver steatosis Non ischemic cardiomyopathy - EF 40-45% by angiogram 08/17/16 Fatty liver Osteoarthritis Hypothyroidism Plan: stool studies iv fluids watch for overload symptomatic control hematology consult with dr Espinoza for hemochromatosis Resume home meds apart from antihypertensives DVT prophylaxiswith Lovenox Discussed Condition With Patient, his at bedside, nurse A/P Problem List: (1) Nausea, vomiting, and diarrhea ICD Code: R11.2 Status: Acute Discharge Planning DC home in stable condition To follow up as OP with PCP and consultants, has already an appointment with GI and hepatology Quit drinking EtOH Meds per med reconciliations. adviced patient to stop taking BP meds if still with diarrhea Diet: healthy heart diet Edith Mukherjee MD Sep 06, 2016 13:59
== END 2016-09-06 15:23 | disposition home or self-care (01) | DRG 641 ==
LOC: NEPC 23:37 → NEDA 09-05 02:30 → NEDH 09-05 05:57 → HOCA 09-05 15:16
PROVIDERS: ADMIT Hospitalist; ATTEND Hospitalist
DX: E86.0 Dehydration (principal); K52.9 Noninfective gastroenteritis and colitis, unspecified; I42.0 Dilated cardiomyopathy; K76.0 Fatty (change of) liver, not elsewhere classified; I95.9 Hypotension, unspecified; R55 Syncope and collapse; K70.9 Alcoholic liver disease, unspecified; I10 Essential (primary) hypertension; E78.00 Pure hypercholesterolemia, unspecified; Z96.642 Presence of left artificial hip joint; E03.9 Hypothyroidism, unspecified; M19.90 Unspecified osteoarthritis, unspecified site; F10.10 Alcohol abuse, uncomplicated
CPT/HCPCS: 71010; 74177; 80048; 80053; 81001; 82550; 82552; 82728; 83605; 83690; 83735; 83880; 84484; 85007; 85025; 85027; 86140; 87205; 87493; 87506; 93005; 96361; 96374; J1650; J2405; J2543; J3370; J7030; J7050; Q9967